=== PATIENT | female | born 1990 | race American Indian/Alaskan Native ===

== ENCOUNTER 2017-10-06 11:13 | Outpatient (CLI) | payer MEDICAID | END 2017-10-06 14:15 | disposition home or self-care (01) | LOC: TRG 11:13 → LABHHL 11:13 → EDSTATUS 13:53 → TRG 13:54 | PROVIDERS: ATTEND Obstetrics & Gynecology | DX: Z34.03 Encounter for supervision of normal first pregnancy, third trimester (principal); Z67.91 Unspecified blood type, Rh negative; Z3A.33 33 weeks gestation of pregnancy | CPT/HCPCS: 86850; 86900; 86901; 96372; J2790 ==

== ENCOUNTER 2020-10-12 20:12 | Emergency (ER) | payer MEDICAID ==
[2020-10-12 20:33] VITALS: BP 135/68
--- NOTE | 2020-10-12 20:42 | Emergency Department Report ---
ED ENT HPI - General Chief complaint: Sore Throat Stated complaint: THROAT PAIN Time Seen by Provider: 10/12/20 20:31 Source: patient Mode of arrival: Ambulatory Limitations: No Limitations - History of Present Illness Initial comments: Patient is a 29-year-old female presents emergency room complaints of a sore throat that began 4 days ago. She has associated pain with swallowing. She is able to tolerate p.o. intake and her secretions were states it is painful when she swallows. She states that it is referring pain to her ears. She denies any cough, shortness of breath, vomiting, diarrhea, fever, abdominal pain, vaginal bleeding. She is currently 6 weeks according to patient. No past medical history. No allergies medications. Last menstrual cycle 08/27/2020. She denies any known sick contacts or recent travel. - Related Data Previous Rx's Medication Instructions Recorded Last Taken Type Acetaminophen [Tylenol] 650 mg PO Q8HR PRN #20 capsule 10/12/20 Unknown Rx Amoxicillin [Amoxicillin TAB] 875 mg PO BID 10 Days #20 tablet 10/12/20 Unknown Rx Allergies Allergy/AdvReac Type Severity Reaction Status Date / Time No Known Allergies Allergy Unverified 10/06/17 14:12 ED Dental HPI - General Chief complaint: Sore Throat Stated complaint: THROAT PAIN Time Seen by Provider: 10/12/20 20:31 Source: patient Mode of arrival: Ambulatory Limitations: No Limitations - Related Data Previous Rx's Medication Instructions Recorded Last Taken Type Acetaminophen [Tylenol] 650 mg PO Q8HR PRN #20 capsule 10/12/20 Unknown Rx Amoxicillin [Amoxicillin TAB] 875 mg PO BID 10 Days #20 tablet 10/12/20 Unknown Rx Allergies Allergy/AdvReac Type Severity Reaction Status Date / Time No Known Allergies Allergy Unverified 10/06/17 14:12 ED Review of Systems ROS: Stated complaint: THROAT PAIN Other details as noted in HPI Comment: All other systems reviewed and negative ED Past Medical Hx - Social History Smoking Status: Never Smoker Substance Use Type: None - Medications Home Medications: Home Medications Medication Instructions Recorded Confirmed Last Taken Type Acetaminophen [Tylenol] 650 mg PO Q8HR PRN #20 capsule 10/12/20 Unknown Rx Amoxicillin [Amoxicillin TAB] 875 mg PO BID 10 Days #20 tablet 10/12/20 Unknown Rx ED Physical Exam - General Limitations: No Limitations General appearance: alert, in no apparent distress - Head Head exam: Present: atraumatic, normocephalic - Eye Eye exam: Present: normal appearance - ENT ENT exam: Present: mucous membranes moist, TM's normal bilaterally, normal external ear exam, other (mild bilateral tonsillar hypertrophy with exudates, uvula is midline, no uvular edema or deviation, no trismus, no tongue elevation, no muffled voice) - Respiratory Respiratory exam: Present: normal lung sounds bilaterally. Absent: respiratory distress, wheezes, rales, rhonchi, stridor, chest wall tenderness, accessory muscle use, decreased breath sounds, prolonged expiratory - Cardiovascular Cardiovascular Exam: Present: regular rate, normal rhythm, normal heart sounds. Absent: systolic murmur, diastolic murmur, rubs, gallop - Neurological Exam Neurological exam: Present: alert, oriented X3 - Psychiatric Psychiatric exam: Present: normal affect, normal mood - Skin Skin exam: Present: warm, dry, intact ED Course Vital Signs 10/12/20 10/12/20 20:32 21:00 Temperature 99.6 F Pulse Rate 114 H Respiratory 17 18 Rate Blood Pressure 135/68 O2 Sat by Pulse 99 Oximetry ED Medical Decision Making - Medical Decision Making Patient is a 29-year-old female presents emergency room complaints of a sore throat that began 4 days ago. She has associated pain with swallowing. She is able to tolerate p.o. intake and her secretions were states it is painful when she swallows. She states that it is referring pain to her ears. She denies any cough, shortness of breath, vomiting, diarrhea, fever, abdominal pain, vaginal bleeding. She is currently 6 weeks according to patient. No past medical history. No allergies medications. Last menstrual cycle 08/27/2020. She denies any known sick contacts or recent travel. Vitals with tachycardia which improved upon repeat. On exam: mild bilateral tonsillar hypertrophy with exudates, uvula is midline, no uvular edema or deviation, no trismus, no tongue elevation, no muffled voice. Examination appears consistent with tonsillitis. Patient is able to tolerate p.o. intake. No signs of peritonsillar abscess at this time. Patient given prescription for amoxicillin and Tylenol. Advised patient Please take medication as prescribed. Increase your fluid intake over the next several days. Throw your toothbrush. Do not drink after others or allow anyone drink after you. Follow-up with your primary care doctor. Return to emergency room any new or worsening symptoms. Critical care attestation.: If time is entered above; I have spent that time in minutes in the direct care of this critically ill patient, excluding procedure time. ED Disposition Clinical Impression: Tonsillitis Disposition: TO HOME OR SELFCARE Is pt being admited?: No Does the pt Need Aspirin: No Condition: Stable Instructions: Tonsillitis, [id number] Additional Instructions: Please take medication as prescribed. Increase your fluid intake over the next several days. Throw your toothbrush. Do not drink after others or allow anyone drink after you. Follow-up with your primary care doctor. Return to emergency room any new or worsening symptoms. Prescriptions: Amoxicillin [Amoxicillin TAB] 875 mg PO BID 10 Days #20 tablet Acetaminophen [Tylenol] 650 mg PO Q8HR PRN #20 capsule PRN Reason: pain Referrals: [facility] [Provider Group] - 2-3 Days HARESH MARI MD [Staff Physician] - 2-3 Days Time of Disposition: 20:40 Print Language: SWISS
[2020-10-12] MEDS ORDERED: ACETAMINOPHEN 325 MG TAB PO ONE (20:51)
== END 2020-10-12 21:21 | disposition home or self-care (01) ==
LOC: ED 20:12
DX: J03.90 Acute tonsillitis, unspecified (principal); Z79.2 Long term (current) use of antibiotics; Z79.899 Other long term (current) drug therapy; Z88.8 Allergy status to other drugs, medicaments and biological substances
CPT/HCPCS: 99282

== ENCOUNTER 2020-12-19 15:13 | Emergency (ER) | payer MEDICAID ==
[2020-12-19 15:53] VITALS: BP 129/73
--- NOTE | 2020-12-19 16:31 | Emergency Department Report ---
Chief Complaint: Extremity Problem,Nontraumatic Stated Complaint: PAIN BOTH HANDS Time Seen by Provider: 12/19/20 16:21 - HPI History of Present Illness: Patient is a 30-year-old female presents emergency room with complaints of bilateral wrist pain and hand pain that has been ongoing for several years. She states that she is currently 4 months . She states that she went to a hand specialist and was advised that she has bilateral carpal tunnel. She states due to her they did not want to do cortisone injections. She states that she does not wear the splints. She denies any fall or injury. She states that due to her with increased mucus she has more paresthesias. No other past medical history. Allergies amoxicillin. Vitals are stable On exam: Non toxic appearing, no acute distress atraumatic, normocephalic normal appearance of the eyes, PERRL, no periorbital edema or ecchymosis moist mucus membranes No respiratory distress, no accessory muscle use No bony tenderness palpation of the bilateral extremities, full range of motion of the bilateral extremities, pain with Phalen's sign, neurovascularly intact A&O x4, no focal neuro deficit skin is warm, dry, intact Examination appears consistent with carpal tunnel She has had no acute trauma No signs of gout or septic joint She has full range of motion Patient is therefore limits medications Advised patient May take Tylenol every 8 hours as needed for pain. Please use wrist splints [id number] for carpal tunnel. Avoid exacerbating factors such as typing. Follow-up with your hand specialist. Return to emergency room for new or worsening symptoms. Discussed return precautions Medical screen examination performed there is no philippe at 11 this time - Exam Vital Signs: Vital Signs 12/19/20 15:52 Temperature 98.2 F Pulse Rate 87 Respiratory 18 Rate Blood Pressure 129/73 O2 Sat by Pulse 100 Oximetry MSE screening note: Focused history and physical exam performed. Due to findings the following was ordered: ED Disposition for MSE Clinical Impression: Carpal tunnel syndrome Qualifiers: Laterality: bilateral Qualified Code(s): G56.03 - Carpal tunnel syndrome, bilateral upper limbs Disposition: Z-07 MED SCREENING EXAM-LEFT Is pt being admited?: No Does the pt Need Aspirin: No Condition: Stable Instructions: Carpal Tunnel Syndrome, [id number] Additional Instructions: May take Tylenol every 8 hours as needed for pain. Please use wrist splints [id number] for carpal tunnel. Avoid exacerbating factors such as typing. Follow-up with your hand specialist. Return to emergency room for new or worsening symptoms. Referrals: your, hand specialist [Other] - 2-3 Days Time of Disposition: 16:30 Print Language: DJIBOUTIAN
== END 2020-12-19 16:30 | disposition left against medical advice (07) ==
LOC: ED 15:13
DX: G56.03 Carpal tunnel syndrome, bilateral upper limbs (principal); Z53.21 Procedure and treatment not carried out due to patient leaving prior to being seen by health care provider